=== PATIENT | male | born 2000 | race Caucasian/White ===

== ENCOUNTER 2023-06-08 19:24 | Outpatient (CLI) | payer SELFPAY ==
--- NOTE | 2023-06-08 20:10 | PC.NURSE ---
DOT urine drug screen done by lab with employer present
== END 2023-06-08 19:25 | disposition home or self-care (01) ==
LOC: UTC.OUT 19:26
PROVIDERS: Visit Provider Nurse Practitioner Family
DX: Z79.899 Other long term (current) drug therapy (principal)